=== PATIENT | female | born 1990 | race Caucasian/White ===

== ENCOUNTER 2020-11-08 11:26 | Inpatient (IN) | payer OTHER ==
[~2020-11-08] VITALS: Ht 154.9 cm; Wt 81.2 kg
--- NOTE | ~2020-11-08 | PROC ---
[address] [address] PROCEDURE REPORT Name: PASQUALE PEÑA Room: [address] IN .R.#: [id number] Admission: 11/08/20 Attend Phys: Carmela Alexander Discharge: 11/18/20 Date of : [birth year] Report #: [id number] THIS REPORT FOR: cc: FAM - No family physician/PCP FAM - No family physician/PCP [facility],Medical Records Staff ~ For GI report, please see the Provation report in Perceptive 7 content. By: [id number] Records Staff [facility] /ED
--- NOTE | ~2020-11-08 | PROC ---
[facility] [address] [place] [address] PROCEDURE REPORT Name: PASQUALE PEÑA Room: [address] IN ..#: [id number] Admission: 11/08/20 Attend Phys: Carmela Alexander Discharge: Date of : [birth year] Report #: [id number] THIS REPORT FOR: cc: FAM - No family physician/PCP FAM - No family physician/PCP [facility],Medical Records Staff ~ For GI report, please see the Provation report in Perceptive 7 content. By: [id number] Records Staff [facility] /ED
[2020-11-08 11:29] VITALS: BP 123/52
[2020-11-08 12:37] LABS: BE -25.9 mmol/L (-2 to +3); PCO2 VENOUS 19.4 mmHg (41.0-51.0); PO2 VENOUS 77.9 mmHg (35.0-45.0)
[2020-11-08 12:42] LABS: HEMATOCRIT 25.9 % (37.0-47.0); MCH 28.2 pg (26.0-34.0); MCHC 26.5 g/dL (28.0-37.0); MCV 106.6 fL (80.0-100.0); MPV 9.5 fl. (7.2-11.1); NUCLEATED RBCS 0 /100WBC; PLATELET COUNT* 234 thou/uL (150-400); RBC 2.43 mil/uL (4.20-5.00); WBC 25.6 thou/uL (4.0-11.0)
[2020-11-08 12:43] LABS: URINE BILIRUBIN NEGATIVE (Negative); URINE BLOOD 2+ (Negative); URINE CLARITY CLEAR; URINE COLOR YELLOW; URINE GLUCOSE-RANDOM 3+ (Negative); URINE KETONES 2+ (Negative); URINE LEUKOCYTES-REFLEX NEGATIVE (Negative); URINE NITRITE-REFLEX NEGATIVE (Negative); URINE PROTEIN 3+ (Negative); URINE UROBILINOGEN 0.2 E.U./dl (0.2-1.0)
[2020-11-08 12:48] LABS: HEMOGLOBIN 6.9 gm/dL (12.0-15.0)
[2020-11-08 12:58] LABS: ALBUMIN 1.2 g/dL (3.4-5.0); ALKALINE PHOSPHATASE 93 U/L (46-116); BUN 104 mg/dL (7-18); CALCIUM 7.3 mg/dL (8.5-10.1); CHLORIDE 100 mmol/L (98-107); CREATININE 5.9 mg/dL (0.6-1.3); SGOT 13 U/L (15-37); SGPT 19 U/L (30-65); SODIUM 134 mmol/L (136-145); TOTAL BILIRUBIN 0.4 mg/dL (<0.1-1.0); TOTAL PROTEIN 4.2 g/dL (6.4-8.2)
[2020-11-08 12:58] LABS: BACTERIA-REFLEX None Seen /HPF (None Seen); CASTS None Seen /LPF (None Seen); CRYSTALS None Seen /LPF (None Seen); MUCUS None Seen strn/LPF (None Seen); SQUAMOUS 4-10 Moderate /LPF (0-3); URINE RBC 3-10 Few /HPF (0-2); URINE WBC-REFLEX 0-5 Rare /HPF (0-5)
[2020-11-08 13:02] LABS: ANION GAP 29 mmol/L (7-16)
[2020-11-08 13:04] LABS: CO2 < 5 mmol/L (21-32); POTASSIUM 6.4 mmol/L (3.5-5.1)
[2020-11-08 13:08] LABS: ABSOLUTE LYMPHOCYTES 1.8 thou/uL (0.8-5.3); ABSOLUTE NEUTROPHILS 23.8 thou/uL (1.6-8.1); GLUCOSE 988 mg/dL (70-99); PLATELET ESTIMATE ADEQUATE; PROMYELOCYTES 2 %
[2020-11-08] MEDS ORDERED: HYDROCHLOROTHIA25 M1 PO (13:53)
[2020-11-08] MEDS ORDERED: NEURONTIN100 MG PO (13:53)
[2020-11-08] MEDS ORDERED: TORSEMIDE20 MG PO (13:53)
[2020-11-08] MEDS ORDERED: LANTUS100 UNIT/M SUBQ (13:54)
[2020-11-08] MEDS ORDERED: LABETALOL HCL300 MG PO (13:54)
[2020-11-08 17:00] VITALS: BP 134/54
[2020-11-08 17:35] LABS: URINE BILIRUBIN NEGATIVE (Negative); URINE BLOOD 3+ (Negative); URINE COLOR YELLOW; URINE GLUCOSE-RANDOM 3+ (Negative); URINE KETONES 1+ (Negative); URINE LEUKOCYTES-REFLEX NEGATIVE (Negative); URINE NITRITE-REFLEX NEGATIVE (Negative); URINE PROTEIN 2+ (Negative); URINE SPECIFIC GRAVITY 1.025 (1.005-1.030); URINE UROBILINOGEN 0.2 E.U./dl (0.2-1.0)
[2020-11-08 17:36] LABS: URINE CLARITY CLOUDY
[2020-11-08 17:44] LABS: SQUAMOUS 4-10 Moderate /LPF (0-3)
[2020-11-08 17:46] LABS: AMORPHOUS URATES Few /LPF (None Seen); BACTERIA-REFLEX None Seen /HPF (None Seen); CASTS None Seen /LPF (None Seen); URINE RBC 3-10 Few /HPF (0-2); URINE WBC-REFLEX 0-5 Rare /HPF (0-5)
[2020-11-08 17:47] LABS: CALCIUM 6.8 mg/dL (8.5-10.1); CREATININE 5.7 mg/dL (0.6-1.3)
[2020-11-08 17:48] LABS: POTASSIUM 4.9 mmol/L (3.5-5.1)
[2020-11-08 20:37] LABS: HEMATOCRIT 21.4 % (37.0-47.0)
[2020-11-08 20:39] LABS: HEMOGLOBIN 6.8 gm/dL (12.0-15.0)
[2020-11-08 20:55] LABS: CALCIUM 6.7 mg/dL (8.5-10.1); CREATININE 5.6 mg/dL (0.6-1.3); POTASSIUM 4.4 mmol/L (3.5-5.1)
[2020-11-08 21:35] LABS: ABSOLUTE BASOPHILS 0.2 thou/uL (0.0-0.2); ABSOLUTE LYMPHOCYTES 1.6 thou/uL (0.8-5.3); ABSOLUTE MONOCYTES 1.1 thou/uL (0.0-1.2); ABSOLUTE NEUTROPHILS 19.5 thou/uL (1.6-8.1); BASOPHILS 0.8 %; LYMPHOCYTES 7.2 %; MCH 28.2 pg (26.0-34.0); MCHC 31.1 g/dL (28.0-37.0); MPV 9.1 fl. (7.2-11.1); NUCLEATED RBCS 0 /100WBC; PLATELET COUNT* 212 thou/uL (150-400); RBC 2.32 mil/uL (4.20-5.00); RDW-CV 15.7 % (10.5-14.5); WBC 22.5 thou/uL (4.0-11.0)
[2020-11-08 21:45] VITALS: BP 151/85
[2020-11-08 21:49] LABS: MCV 90.5 fL (80.0-100.0)
[2020-11-08 21:50] LABS: HEMOGLOBIN 6.5 gm/dL (12.0-15.0)
[2020-11-08 22:09] LABS: URINE BILIRUBIN NEGATIVE (Negative); URINE BLOOD 3+ (Negative); URINE CLARITY CLEAR; URINE COLOR STRAW; URINE GLUCOSE-RANDOM 3+ (Negative); URINE KETONES 1+ (Negative); URINE LEUKOCYTES-REFLEX NEGATIVE (Negative); URINE NITRITE-REFLEX NEGATIVE (Negative); URINE PROTEIN 3+ (Negative); URINE UROBILINOGEN 0.2 E.U./dl (0.2-1.0)
[2020-11-08 22:35] LABS: FINE GRANULAR CASTS 0-3 Few /LPF (None Seen); SQUAMOUS 0-3 Few /LPF (0-3)
[2020-11-08 22:36] LABS: BACTERIA-REFLEX 1-9 Few /HPF (None Seen); CRYSTALS None Seen /LPF (None Seen)
[2020-11-09 01:30] LABS: URINE BLOOD 3+ (Negative); URINE CLARITY CLEAR; URINE COLOR YELLOW; URINE GLUCOSE-RANDOM 1+ (Negative); URINE KETONES NEGATIVE (Negative); URINE LEUKOCYTES-REFLEX NEGATIVE (Negative); URINE NITRITE-REFLEX NEGATIVE (Negative); URINE PROTEIN 3+ (Negative); URINE SPECIFIC GRAVITY 1.015 (1.005-1.030); URINE UROBILINOGEN 0.2 E.U./dl (0.2-1.0)
[2020-11-09 01:33] LABS: URINE BILIRUBIN 1+ (Negative)
[2020-11-09 01:36] LABS: ICTOTEST (BILI CONFIRMATORY) Negative (Negative)
[2020-11-09 01:38] LABS: COARSE GRANULAR CASTS 0-3 Few /LPF (None Seen); SQUAMOUS 0-3 Few /LPF (0-3)
[2020-11-09 01:39] LABS: WBC CASTS 0-3 /LPF
[2020-11-09 01:40] LABS: URINE RBC 3-10 Few /HPF (0-2)
[2020-11-09 01:41] LABS: BACTERIA-REFLEX 1-9 Few /HPF (None Seen); CRYSTALS None Seen /LPF (None Seen); URINE WBC-REFLEX 0-5 Rare /HPF (0-5)
[2020-11-09 01:44] LABS: CALCIUM 6.9 mg/dL (8.5-10.1); CREATININE 5.4 mg/dL (0.6-1.3); POTASSIUM 3.9 mmol/L (3.5-5.1)
[2020-11-09 02:00] VITALS: BP 166/88
[2020-11-09 05:18] LABS: CREATININE 5.2 mg/dL (0.6-1.3); POTASSIUM 3.6 mmol/L (3.5-5.1)
[2020-11-09 05:53] LABS: URINE BILIRUBIN NEGATIVE (Negative); URINE BLOOD 3+ (Negative); URINE CLARITY CLEAR; URINE COLOR YELLOW; URINE GLUCOSE-RANDOM 1+ (Negative); URINE KETONES NEGATIVE (Negative); URINE LEUKOCYTES-REFLEX NEGATIVE (Negative); URINE NITRITE-REFLEX NEGATIVE (Negative); URINE PROTEIN 3+ (Negative); URINE UROBILINOGEN 0.2 E.U./dl (0.2-1.0)
[2020-11-09 06:00] VITALS: BP 170/80
[2020-11-09 06:02] LABS: SQUAMOUS 0-3 Few /LPF (0-3); URINE WBC-REFLEX 6-15 Few /HPF (0-5)
[2020-11-09 06:03] LABS: CASTS None Seen /LPF (None Seen); CRYSTALS None Seen /LPF (None Seen); MUCUS 0-3 Light strn/LPF (None Seen)
[2020-11-09 08:49] LABS: HEMATOCRIT 26.7 % (37.0-47.0); MCH 28.6 pg (26.0-34.0); MCHC 32.9 g/dL (28.0-37.0); MPV 8.6 fl. (7.2-11.1); RBC 3.07 mil/uL (4.20-5.00); RDW-CV 16.8 % (10.5-14.5); WBC 22.8 thou/uL (4.0-11.0)
[2020-11-09 08:51] LABS: HEMOGLOBIN 8.8 gm/dL (12.0-15.0)
[2020-11-09 09:00] LABS: ALBUMIN 1.2 g/dL (3.4-5.0); CALCIUM 6.9 mg/dL (8.5-10.1); CREATININE 5.1 mg/dL (0.6-1.3); PHOSPHORUS* 8.3 mg/dL (2.5-4.9); POTASSIUM 4.9 mmol/L (3.5-5.1)
[2020-11-09 09:04] LABS: ABSOLUTE BASOPHILS 0.1 thou/uL (0.0-0.2); ABSOLUTE LYMPHOCYTES 1.3 thou/uL (0.8-5.3); ABSOLUTE MONOCYTES 1.5 thou/uL (0.0-1.2); ABSOLUTE NEUTROPHILS 20.6 thou/uL (1.6-8.1); BASOPHILS 0.6 %; EOSINOPHILS 0.1 %; HEMATOCRIT 26.1 % (37.0-47.0); HEMOGLOBIN 8.5 gm/dL (12.0-15.0); LYMPHOCYTES 5.5 %; MCH 28.2 pg (26.0-34.0); MCHC 32.4 g/dL (28.0-37.0); MCV 87.2 fL (80.0-100.0); MONOCYTES 6.4 %; MPV 8.9 fl. (7.2-11.1); NUCLEATED RBCS 0 /100WBC; PLATELET COUNT* 242 thou/uL (150-400); POLYS 87.4 %; RDW-CV 16.4 % (10.5-14.5); WBC 23.6 thou/uL (4.0-11.0)
[2020-11-09 09:10] LABS: ALBUMIN 1.2 g/dL (3.4-5.0); CALCIUM 6.9 mg/dL (8.5-10.1); CREATININE 5.2 mg/dL (0.6-1.3); POTASSIUM 4.9 mmol/L (3.5-5.1); TOTAL BILIRUBIN 0.2 mg/dL (<0.1-1.0); TOTAL PROTEIN 4.6 g/dL (6.4-8.2)
[2020-11-09 10:00] VITALS: BP 160/86
--- NOTE | 2020-11-09 10:45 | EKG ---
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: LALITA : 1990 Requested By: Michael Prakash Order Number: [id number] MD: Ruben Gudino Measurements Intervals Tiff Rate: 82 P: 67 SC: 139 QRS: 36 QRSD: 122 T: QT: 424 QTc: 496 Interpretive Statements Sinus rhythm Probable left atrial enlargement Nonspecific intraventricular conduction delay Borderline repolarization abnormality Baseline wander in lead(s) V5 No previous ECG available for comparison Electronically Signed On 11-09-2020 10:45:08 CDT by Ruben Gudino [email or web address] <ELECTRONICALLY SIGNED> By: Ruben Gudino MD, [facility] 11/09/20 1045 1228 1228 Ruben Gudino MD, [facility] /EPI
[2020-11-09 14:20] VITALS: BP 154/88
[2020-11-09 14:57] LABS: ALBUMIN 1.2 g/dL (3.4-5.0); CREATININE 5.2 mg/dL (0.6-1.3); PHOSPHORUS* 8.1 mg/dL (2.5-4.9); POTASSIUM 4.3 mmol/L (3.5-5.1)
[2020-11-09 18:05] VITALS: BP 195/94
[2020-11-09 20:14] LABS: URINE BILIRUBIN NEGATIVE (Negative); URINE BLOOD 2+ (Negative); URINE COLOR YELLOW; URINE GLUCOSE-RANDOM 1+ (Negative); URINE KETONES NEGATIVE (Negative); URINE LEUKOCYTES-REFLEX NEGATIVE (Negative); URINE NITRITE-REFLEX NEGATIVE (Negative); URINE PROTEIN 3+ (Negative); URINE SPECIFIC GRAVITY 1.015 (1.005-1.030); URINE UROBILINOGEN 0.2 E.U./dl (0.2-1.0)
[2020-11-09 20:18] LABS: URINE CLARITY HAZY
[2020-11-09 20:19] LABS: CALCIUM 6.9 mg/dL (8.5-10.1); CREATININE 4.8 mg/dL (0.6-1.3); MAGNESIUM 1.8 mg/dL (1.8-2.4); POTASSIUM 3.6 mmol/L (3.5-5.1)
[2020-11-09 20:29] LABS: HYALINE CASTS 0-3 Few /LPF (None Seen); SQUAMOUS 0-3 Few /LPF (0-3)
[2020-11-09 20:30] LABS: URINE RBC 0-2 Rare /HPF (0-2); URINE WBC-REFLEX 0-5 Rare /HPF (0-5)
[2020-11-09 20:31] LABS: BACTERIA-REFLEX 1-9 Few /HPF (None Seen); CRYSTALS None Seen /LPF (None Seen); MUCUS None Seen strn/LPF (None Seen)
[2020-11-09 22:00] VITALS: BP 209/109
[2020-11-09 22:58] LABS: HEMATOCRIT 24.8 % (37.0-47.0); MCH 27.9 pg (26.0-34.0); MCHC 32.1 g/dL (28.0-37.0); MCV 86.8 fL (80.0-100.0); MPV 8.4 fl. (7.2-11.1); RBC 2.86 mil/uL (4.20-5.00); RDW-CV 16.9 % (10.5-14.5); WBC 14.1 thou/uL (4.0-11.0)
[2020-11-10] VITALS (7 sets, daily range): BP systolic 153–212; BP diastolic 74–116
[2020-11-10 00:59] LABS: CALCIUM 6.8 mg/dL (8.5-10.1); CREATININE 4.8 mg/dL (0.6-1.3); MAGNESIUM 1.9 mg/dL (1.8-2.4); POTASSIUM 3.4 mmol/L (3.5-5.1)
[2020-11-10 04:50] LABS: URINE BILIRUBIN NEGATIVE (Negative); URINE BLOOD 2+ (Negative); URINE CLARITY CLEAR; URINE COLOR STRAW; URINE GLUCOSE-RANDOM 2+ (Negative); URINE KETONES NEGATIVE (Negative); URINE LEUKOCYTES NEGATIVE (Negative); URINE NITRITE NEGATIVE (Negative); URINE PROTEIN 3+ (Negative); URINE SPECIFIC GRAVITY 1.015 (1.005-1.030); URINE UROBILINOGEN 0.2 E.U./dl (0.2-1.0)
[2020-11-10 04:57] LABS: SQUAMOUS NONE SEEN /LPF (0-3)
[2020-11-10 04:58] LABS: WBC CASTS 0-3 /LPF
[2020-11-10 04:59] LABS: URINE RBC 3-10 Few /HPF (0-2); URINE WBC 6-15 Few /HPF (0-5)
[2020-11-10 05:00] LABS: CRYSTALS None Seen /LPF (None Seen)
[2020-11-10 05:56] LABS: CALCIUM 6.6 mg/dL (8.5-10.1); CREATININE 4.8 mg/dL (0.6-1.3); POTASSIUM 3.2 mmol/L (3.5-5.1)
[2020-11-10 08:20] LABS: HEMATOCRIT 24.6 % (37.0-47.0); HEMOGLOBIN 8.2 gm/dL (12.0-15.0); MCH 28.3 pg (26.0-34.0); MCHC 33.4 g/dL (28.0-37.0); MCV 84.8 fL (80.0-100.0); MPV 8.2 fl. (7.2-11.1); RBC 2.9 mil/uL (4.20-5.00); RDW-CV 17.1 % (10.5-14.5); WBC 11.7 thou/uL (4.0-11.0)
[2020-11-10 08:28] LABS: URINE BILIRUBIN NEGATIVE (Negative); URINE BLOOD 2+ (Negative); URINE CLARITY CLEAR; URINE COLOR YELLOW; URINE GLUCOSE-RANDOM 1+ (Negative); URINE KETONES NEGATIVE (Negative); URINE LEUKOCYTES NEGATIVE (Negative); URINE NITRITE NEGATIVE (Negative); URINE PROTEIN 3+ (Negative); URINE UROBILINOGEN 0.2 E.U./dl (0.2-1.0)
[2020-11-10 08:34] LABS: CALCIUM 6.6 mg/dL (8.5-10.1); CREATININE 4.8 mg/dL (0.6-1.3); MAGNESIUM 1.7 mg/dL (1.8-2.4)
[2020-11-10 09:06] LABS: SQUAMOUS 4-10 Moderate /LPF (0-3); URINE RBC 3-10 Few /HPF (0-2); URINE WBC 0-5 Rare /HPF (0-5)
[2020-11-10 09:07] LABS: BACTERIA None Seen /HPF (None Seen); CASTS None Seen /LPF (None Seen); CRYSTALS None Seen /LPF (None Seen); MUCUS None Seen strn/LPF (None Seen)
[2020-11-10 13:52] LABS: CALCIUM 6.5 mg/dL (8.5-10.1); CREATININE 4.7 mg/dL (0.6-1.3); MAGNESIUM 1.7 mg/dL (1.8-2.4); POTASSIUM 3.3 mmol/L (3.5-5.1)
[2020-11-10] MEDS ORDERED: HYDRALAZINE 2525 MG PO (15:59)
[2020-11-10] MEDS ORDERED: NORVASC10 MG PO (16:12)
[2020-11-10] MEDS ORDERED: WELLBUTRIN SR200 MG PO (16:14)
[2020-11-10] MEDS ORDERED: HUMALOG100 UNIT/1 SUBQ (16:15)
[2020-11-10] MEDS ORDERED: FLEXERIL PO (16:15)
[2020-11-10] MEDS ORDERED: METOCLOPRAM5 MG/5 M2 PO (16:16)
[2020-11-11 00:29] VITALS: BP 146/82
[2020-11-11 04:25] VITALS: BP 181/92
[2020-11-11 09:57] LABS: % SATURATION 57 % (20-39); IRON 63 ug/dL (50-175)
[2020-11-11] MEDS ORDERED: HUMALOG100 UNIT/1 SUBQ (11:23)
[2020-11-11] MEDS ORDERED: LANTUS100 UNIT/M SUBQ (11:23)
[2020-11-11 12:00] VITALS: BP 170/93
[2020-11-11 16:00] VITALS: BP 199/98
[2020-11-11 21:00] VITALS: BP 189/106
[2020-11-12 00:55] VITALS: BP 182/98
[2020-11-12 04:38] VITALS: BP 192/102
[2020-11-12 06:37] LABS: HEMATOCRIT 21.5 % (37.0-47.0); MCH 28.2 pg (26.0-34.0); MCHC 32.2 g/dL (28.0-37.0); MCV 87.5 fL (80.0-100.0); MPV 8.7 fl. (7.2-11.1); RBC 2.46 mil/uL (4.20-5.00); RDW-CV 16.5 % (10.5-14.5); WBC 6.6 thou/uL (4.0-11.0)
[2020-11-12 06:38] LABS: HEMOGLOBIN 6.9 gm/dL (12.0-15.0)
[2020-11-12 06:45] LABS: CALCIUM 6.7 mg/dL (8.5-10.1); CREATININE 4.4 mg/dL (0.6-1.3); POTASSIUM 3.4 mmol/L (3.5-5.1)
[2020-11-12 11:38] VITALS: BP 172/94; BP 188/100; BP 199/109; BP 225/114
[2020-11-12 16:16] VITALS: BP 181/94
[2020-11-12 16:31] LABS: ABSOLUTE BASOPHILS 0.1 thou/uL (0.0-0.2); ABSOLUTE EOSINOPHILS 0.3 thou/uL (0.0-0.7); ABSOLUTE LYMPHOCYTES 1.5 thou/uL (0.8-5.3); ABSOLUTE MONOCYTES 0.6 thou/uL (0.0-1.2); ABSOLUTE NEUTROPHILS 6.2 thou/uL (1.6-8.1); BASOPHILS 1.1 %; EOSINOPHILS 3.4 %; HEMATOCRIT 30.5 % (37.0-47.0); LYMPHOCYTES 17.5 %; MCH 28.2 pg (26.0-34.0); MCHC 33.3 g/dL (28.0-37.0); MCV 84.8 fL (80.0-100.0); MONOCYTES 6.7 %; MPV 8.4 fl. (7.2-11.1); NUCLEATED RBCS 0 /100WBC; PLATELET COUNT* 157 thou/uL (150-400); POLYS 71.3 %; RDW-CV 16.8 % (10.5-14.5); WBC 8.6 thou/uL (4.0-11.0)
--- NOTE | 2020-11-12 16:36 | CON ---
[address] [address] CONSULTATION Name: MARIANAPASQUALE Kc Room: [address] IN ..#: [id number] Admission: 11/08/20 Attend Phys: Carmela Alexander Discharge: Date of : 89 Report #: [id number] THIS REPORT FOR: cc: FAM - No family physician/PCP FAM - No family physician/PCP Zachary Coello MD ~ DATE OF CONSULTATION: 11/11/2020 The patient does not recall who her PCP is. Please note at the time of this dictation, the patient was seen and physically examined by myself. HISTORY OF PRESENT ILLNESS: This is a 30-year-old female who initially presented to the ED via EMS with altered mental status. The patient is diabetic type 1 and does not control her blood sugars very well and she was supposed to be taking insulin 3 times a day, but she denies having an insulin pump. Apparently, the patient collapsed and fell 45 minutes prior to their arrival. Typically, she is seen at [place] or [place] by what has been told in the records. The patient is a very poor historian and not willing to answer questions regarding her health. Apparently, the patient was in [place] on 10/10 for some facial swelling. It was noted at that time her hemoglobin was 9.2. She denies any NSAID use. She states prior to her admission at this time she was noticing some black tarry stools. Apparently, she had a BM last night, but no mention was made that it was black in nature and the patient cannot tell me whether or not it was black in nature or not. She does admit that she had an EGD done in [place] years ago. She does not recall what it showed. She denies any significant vomiting, some ongoing nausea and generalized abdominal discomfort. ALLERGIES: MORPHINE. MEDICATIONS FROM HOME: Include labetalol, glargine, lispro, furosemide, torsemide, metoclopramide, hydralazine, gabapentin, Flexeril, bupropion, amlodipine. PAST MEDICAL HISTORY: Significant for type 1 diabetes, hypertension, chronic kidney disease and DKA. PAST SURGICAL HISTORY: Unknown. FAMILY HISTORY: Denies family history of any GI or female cancers that she is aware of. SOCIAL HISTORY: She does use tobacco and smokes marijuana 3-5 [place] [address] CONSULTATION Name: MARIANAPASQUALE M Room: [address] IN [facility]#: [id number] Admission: 11/08/20 Attend Phys: Carmela Alexander Discharge: Date of : [birth year] Report #: [id number] REVIEW OF SYSTEMS: Twelve-point review of systems is essentially negative except what is mentioned in the HPI. PHYSICAL EXAMINATION: VITAL SIGNS: 36.2, pulse 93, respirations 18, blood pressure 163/82. HEART: Regular rate and rhythm. LUNGS: Diminished but clear. ABDOMEN: Soft, positive bowel sounds in all 4 quadrants with some generalized tenderness noted to palpation. LABORATORY DATA: WBC is 11.7, hemoglobin yesterday morning was 8.2 on admission, she dropped down from 6.9 to 6.5. She did get 1 unit of blood, platelets are 193. BUN is 80, on admission she was 104. Creatinine is 4.7 with a GFR of 11 on admission, her blood sugar initially was 988 and she is now down to 324 this a.m. IMPRESSION: 1. Melanotic stool. 2. Abdominal pain. 3. Acute on chronic anemia. 4. Diabetic ketoacidosis. 5. Chronic kidney disease. 6. Pneumonia. PLAN: 1. EGD tomorrow with Dr. Coello. 2. Monitor for overt bleeding. 3. Labs, iron studies, ferritin, B12 and a soluble transferrin receptor. 4. Further recommendations to be made after Dr. Coello sees the patient later today. Thank you for allowing us to participate in this patient's care. Please do not hesitate to call with any questions regarding this consult. <ELECTRONICALLY SIGNED> By: Zachary Coello MD 11/12/20 1636 0800 [id number] Coello MD /nt
[2020-11-12 16:38] LABS: HEMOGLOBIN 10.1 gm/dL (12.0-15.0)
[2020-11-12 16:46] LABS: ALBUMIN 0.9 g/dL (3.4-5.0); CALCIUM 7.1 mg/dL (8.5-10.1); CREATININE 4.2 mg/dL (0.6-1.3); POTASSIUM 3.4 mmol/L (3.5-5.1); TOTAL BILIRUBIN 0.3 mg/dL (<0.1-1.0); TOTAL PROTEIN 4.5 g/dL (6.4-8.2)
[2020-11-12] MEDS ORDERED: REGLAN 10 MG TA10 MG PO (20:40)
[2020-11-12] MEDS ORDERED: CARAFATE 11 GM/10 M1 PO (20:40)
[2020-11-12] MEDS ORDERED: FLUCONAZOLE 10100 MG PO (20:44)
[2020-11-12 20:46] VITALS: BP 228/111
[2020-11-13] VITALS: BP 167/102
[2020-11-13 02:55] VITALS: BP 191/112
[2020-11-13 05:45] VITALS: BP 166/89
[2020-11-13 08:43] VITALS: BP 188/110
--- NOTE | 2020-11-13 09:25 | EKG ---
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
--- NOTE | 2020-11-13 11:17 | CON ---
[address] [address] CONSULTATION Name: PASQUALE PEÑA Room: [address] IN .R.#: [id number] Admission: 11/08/20 Attend Phys: Carmela Alexander Discharge: Date of : 89 Report #: [id number] THIS REPORT FOR: cc: FAM - No family physician/PCP FAM - No family physician/PCP Slime Ram MD ~ DATE OF CONSULTATION: 11/10/2020 NEPHROLOGY CONSULTATION CONSULTING PHYSICIAN: Nick Aldrich DO REASON FOR NEPHROLOGY CONSULTATION: Acute kidney injury on chronic kidney disease stage 4. REASON FOR ADMISSION: Diabetic ketoacidosis. HISTORY OF PRESENT ILLNESS: This is a 30-year-old female who has a history of chronic kidney disease stage 4. Her baseline creatinine is 2.9-3 most recently in October. She normally follows with [facility]. She has diabetic nephropathy. In all likelihood, diabetes type 1, not very compliant with her insulin; hypertension, which is also uncontrolled. She has diabetic retinopathy as per the patient as well, came in with DKA. Her creatinine was 5.9 on admission, has come down to 4.8, but now stable. She has been getting IV fluids. Her blood pressure is also out of control. She does take torsemide and hydrochlorothiazide at home. The patient was recently seen on 10/10 at [place] for facial swelling and DKA. ALLERGIES: SHE HAS ALLERGY TO MORPHINE. REVIEW OF SYSTEMS: As mentioned in history of present illness. She was sleeping when I came in. Otherwise, detailed 10-point review of systems was not possible because she was drowsy. PAST MEDICAL HISTORY: Includes chronic kidney disease stage 4; hypertension, which is uncontrolled; diabetes type 1, which is uncontrolled; DKA. PAST SURGICAL HISTORY: The patient did not report any. HOME MEDICATIONS: Include amlodipine, bupropion, Flexeril, gabapentin, hydralazine 25 mg 3 times a day, metoclopramide 5 mg as needed, torsemide 20 mg a day, furosemide 40 mg a day, glargine insulin, insulin lispro and labetalol. FAMILY HISTORY: The patient was not able to [place] [address] CONSULTATION Name: PASQUALE PEÑA Room: [address] IN [facility]#: [id number] Admission: 11/08/20 Attend Phys: Carmela Alexander Discharge: Date of : 89 Report #: [id number] SOCIAL HISTORY: Uses marijuana 3-5 times a week. Tobacco use, alcohol use is not known. PHYSICAL EXAMINATION: VITAL SIGNS: Blood pressure is 153/74, pulse rate is 92, temperature 36.9, respiratory rate is 18 and pulse ox is 94%. She is not on oxygen. GENERAL: She is to be drowsy, but she is arousable; alert and oriented x 3. HEAD AND EYES: Atraumatic, normocephalic. Significant periorbital edema and facial edema. EARS, NOSE, THROAT: Normal ears and nose. Mucous membranes are moist. NECK: JVD was difficult to assess. CHEST: Bilaterally clear to auscultation. CARDIOVASCULAR SYSTEM: S1, S2 normal. No murmurs. ABDOMEN: Soft, nondistended, nontender. LOWER EXTREMITIES: Currently, there was about 1+ edema. NEUROLOGICAL FUNCTION: Grossly intact. PSYCHIATRIC: Mood and affect-dacosta, seems she was a little depressed. LABORATORY DATA: Sodium was 144, potassium was 3.0, bicarb was 19, BUN was 81, creatinine was 4.8, hemoglobin was 8.2 and other labs were reviewed. IMAGING: Head CT, renal ultrasound and chest x-ray were reviewed. ASSESSMENT: 1. Acute kidney injury on chronic kidney disease stage 4. Baseline creatinine is 2.9-3 as per her labs from October of this year. Creatinine was 5.9 on admission in the setting of diabetic ketoacidosis, volume depletion. She does use diuretics at home. Urinalysis revealed 2+ blood as well as evidence of 3+ protein. She had 14 grams of proteinuria in October when her labs were checked at [place]. At that time, she had serological workup, complement levels, KIERRA, hepatitis B surface antigen, serum free light chain ratio were all normal. Her hemoglobin A1c in October was 13. Renal imaging was done. Left kidney could not be visualized for some reason, but right kidney looked normal. 2. Diabetes type 1, which is uncontrolled. She has diabetic retinopathy as well. Would defer to Internal Medicine for management of her diabetic ketoacidosis. 3. Hypertension is also uncontrolled. 4. Hospital-acquired pneumonia. She is being treated for that as per primary team with antibiotics. She is getting Zosyn. 5. Stool for occult blood positive. We will defer to Internal Medicine for management of that. 6. Hypocalcemia. 7. [place] [address] CONSULTATION Name: PASQUALE PEÑA Room: [address] IN M.R.#: [id number] Admission: 11/08/20 Attend Phys: Carmela Alexander Discharge: Date of : 89 Report #: [id number] 8. Anemia. 9. Hypoalbuminemia. PLAN: 1. Change her IV fluids to D5 half normal saline with 20 of K at 100 mL an hour, replete potassium as needed. Check the potassium again this afternoon. 2. Her urine output is good. 3. Creatinine is improved to 4.8, but now stable. 4. Overall, renal prognosis is not good. 5. Tums added for hypocalcemia. 6. We will hold off on diuretics right now, but may have to start them soon. Thank you for this consultation. We will follow with you. I discussed with the patient and the patient's nurse. <ELECTRONICALLY SIGNED> By: Slime Ram MD 11/13/20 1117 0941 1848Ayanick Ram MD /nt
[2020-11-13 12:03] LABS: ALBUMIN 0.8 g/dL (3.4-5.0); ALKALINE PHOSPHATASE 88 U/L (46-116); ANION GAP 10 mmol/L (7-16); BUN 49 mg/dL (7-18); CALCIUM 7.2 mg/dL (8.5-10.1); CHLORIDE 109 mmol/L (98-107); CO2 18 mmol/L (21-32); CREATININE 4.1 mg/dL (0.6-1.3); GLUCOSE 226 mg/dL (70-99); POTASSIUM 4.1 mmol/L (3.5-5.1); SGOT 12 U/L (15-37); SGPT 16 U/L (30-65); SODIUM 137 mmol/L (136-145); TOTAL BILIRUBIN < 0.1 mg/dL (<0.1-1.0); TOTAL PROTEIN 4.1 g/dL (6.4-8.2)
[2020-11-13 12:11] VITALS: BP 136/79
[2020-11-13 19:57] VITALS: BP 180/97
[2020-11-14] VITALS: BP 128/71
[2020-11-14 03:46] LABS: HEMATOCRIT 27.2 % (37.0-47.0); HEMOGLOBIN 8.9 gm/dL (12.0-15.0); MCH 28.1 pg (26.0-34.0); MCHC 32.7 g/dL (28.0-37.0); MCV 85.9 fL (80.0-100.0); MPV 8.8 fl. (7.2-11.1); RBC 3.16 mil/uL (4.20-5.00); RDW-CV 17.2 % (10.5-14.5); WBC 10.6 thou/uL (4.0-11.0)
[2020-11-14 04:00] VITALS: BP 142/82
[2020-11-14 04:09] LABS: ALBUMIN 0.7 g/dL (3.4-5.0); CALCIUM 7.4 mg/dL (8.5-10.1); CREATININE 4.1 mg/dL (0.6-1.3); MAGNESIUM 1.5 mg/dL (1.8-2.4); POTASSIUM 3.6 mmol/L (3.5-5.1); TOTAL BILIRUBIN 0.1 mg/dL (<0.1-1.0); TOTAL PROTEIN 3.9 g/dL (6.4-8.2)
[2020-11-14 12:00] VITALS: BP 132/79
[2020-11-14 16:00] VITALS: BP 173/80
[2020-11-14 19:54] VITALS: BP 169/92
[2020-11-15] VITALS: BP 143/78
[2020-11-15 02:34] LABS: HEMATOCRIT 25.4 % (37.0-47.0); HEMOGLOBIN 8.3 gm/dL (12.0-15.0); MCHC 32.6 g/dL (28.0-37.0); RBC 2.95 mil/uL (4.20-5.00); RDW-CV 16.5 % (10.5-14.5); WBC 10.3 thou/uL (4.0-11.0)
[2020-11-15 03:03] LABS: CALCIUM 7.4 mg/dL (8.5-10.1); CREATININE 4.1 mg/dL (0.6-1.3)
[2020-11-15 04:00] VITALS: BP 145/83
[2020-11-15 08:35] VITALS: BP 100/58
[2020-11-15 12:00] VITALS: BP 117/73
[2020-11-15 16:00] VITALS: BP 169/90
[2020-11-15 20:01] VITALS: BP 197/100
[2020-11-16] VITALS: BP 144/79
[2020-11-16 04:24] VITALS: BP 134/77
[2020-11-16 04:32] LABS: HEMATOCRIT 23.1 % (37.0-47.0); HEMOGLOBIN 7.6 gm/dL (12.0-15.0); MCH 28.3 pg (26.0-34.0); MCHC 32.8 g/dL (28.0-37.0); MCV 86.1 fL (80.0-100.0); MPV 8.4 fl. (7.2-11.1); RBC 2.69 mil/uL (4.20-5.00); RDW-CV 16.7 % (10.5-14.5); WBC 8.3 thou/uL (4.0-11.0)
[2020-11-16 05:20] LABS: ALBUMIN 0.8 g/dL (3.4-5.0); CALCIUM 7.6 mg/dL (8.5-10.1); CREATININE 4.4 mg/dL (0.6-1.3); POTASSIUM 3.8 mmol/L (3.5-5.1); TOTAL BILIRUBIN 0.1 mg/dL (<0.1-1.0); TOTAL PROTEIN 3.9 g/dL (6.4-8.2)
[2020-11-16 08:00] VITALS: BP 192/101
[2020-11-16 16:00] VITALS: BP 189/107
[2020-11-16 17:54] LABS: HEMATOCRIT 26.9 % (37.0-47.0); HEMOGLOBIN 8.6 gm/dL (12.0-15.0); MCHC 32.2 g/dL (28.0-37.0); MPV 7.9 fl. (7.2-11.1); RBC 3.09 mil/uL (4.20-5.00); RDW-CV 16.7 % (10.5-14.5); WBC 8.6 thou/uL (4.0-11.0)
[2020-11-16 21:34] VITALS: BP 202/109
[2020-11-16 22:45] VITALS: BP 186/98
[2020-11-17] VITALS: BP 128/74
[2020-11-17 04:00] VITALS: BP 138/84
[2020-11-17 05:28] LABS: HEMATOCRIT 23.7 % (37.0-47.0); HEMOGLOBIN 7.6 gm/dL (12.0-15.0); MCHC 32.1 g/dL (28.0-37.0); MCV 87.3 fL (80.0-100.0); MPV 8.2 fl. (7.2-11.1); RBC 2.71 mil/uL (4.20-5.00); RDW-CV 17.1 % (10.5-14.5); WBC 7.2 thou/uL (4.0-11.0)
[2020-11-17 05:34] LABS: CALCIUM 7.5 mg/dL (8.5-10.1); CREATININE 4.5 mg/dL (0.6-1.3); MAGNESIUM 1.8 mg/dL (1.8-2.4); POTASSIUM 4.2 mmol/L (3.5-5.1)
[2020-11-17 08:00] VITALS: BP 175/88
[2020-11-17 11:57] VITALS: BP 158/90
--- NOTE | 2020-11-17 17:06 | PATH ---
[address] [address] PATHOLOGY RPT PROCEDURE Name: IZA BARRETT Room: [address] IN M.R.#: [id number] Admission: 11/08/20 Date of : [birth year] Discharge: Report #: [id number] Path Case #: [id number] [facility] Accession Number: [id number] . 01 Material submitted: . PART A: stomach - STOMACH PART B: esophagus - ESOPHAGUS- SEVERELY FRIABLE MUCOSA- R/O FRANK AND DYSPLASIA . 01 Clinical history: . EGD IN OR DKA, PNEUMONIA . 02 Diagnosis: A. Stomach: - Mild nonspecific chronic gastritis, negative for Helicobacter pylori organisms, granulomas and dysplasia. . B. Esophagus: - Predominantly inflammatory debris in association with abundant fungal elements typical of Frank species and benign and inflamed fibromuscular stroma and scant heavily inflamed squamous epithelium with atypia, nondiagnostic for dysplasia. - Isolated fragment of benign stomach glandular tissue with minimal acute inflammation, negative for goblet cells, granulomas and diagnostic viral inclusions. See comment. . (HELEN:shazia; 11/17/2020) MBR 11/17/2020 1319 Local . 02 Comment: In specimen B, a single very small fragment of atypical squamous epithelium is present in association with abundant inflammation and it is within the spectrum of inflammatory atypia, however, dysplasia also cannot be excluded. (HELEN:shazia; 11/17/2020) . . Special stain on A: H. pylori immuno . 02 Electronically signed: . Keanu Richardson MD, Pathologist NPI- [id number] . 01 Gross description: . A. The specimen is received in formalin, labeled "Iza Barrett, stomach-erosions". It consists of 2 sarmiento irregular soft tissue fragments measuring 0.4 and 0.5 cm. The [place] [address] PATHOLOGY RPT PROCEDURE Name: IZA BARRETT Room: [address] IN [facility]#: [id number] Admission: 11/08/20 Date of : [birth year] Discharge: Report #: [id number] Path Case #: [id number] sponges in A1. . B. The specimen is received in formalin, labeled "Iza Barrett, esophagus R/O frank and dysplasia". It consists of multiple sarmiento-dupont, irregular soft tissue fragments measuring 1.2 x 1.1 x 0.2 cm in aggregate. The specimen is placed in a biopsy bag and entirely submitted in B1 for serial multiple step sections. (MRF; 11/13/2020) MFE/MFE 11/17/2020 1320 Local . 02 Pathologist provided ICD-10: K29.50, B37.81 . 02 CPT . 137480, 546672, Q61540 Specimen Comment: A courtesy copy of this report has been sent to [phone] Specimen Comment: [phone] Specimen Comment: Report sent to / DR SPIVEY Performed at: [address] [facility] [address], [place], [place] [id number] MD Martin Pack MD Phone: [phone] Performed at: 02 [facility] [place] [address] [place] [id number] MD Keanu Richardson MD Phone: [phone]
[2020-11-17 20:52] VITALS: BP 179/93
[2020-11-18] VITALS: BP 154/86
[2020-11-18 04:00] VITALS: BP 183/96
[2020-11-18 05:25] LABS: HEMATOCRIT 22.9 % (37.0-47.0); HEMOGLOBIN 7.6 gm/dL (12.0-15.0); MCH 28.5 pg (26.0-34.0); MCHC 33.2 g/dL (28.0-37.0); MPV 7.4 fl. (7.2-11.1); RBC 2.66 mil/uL (4.20-5.00); RDW-CV 16.4 % (10.5-14.5); WBC 8.6 thou/uL (4.0-11.0)
[2020-11-18 05:37] LABS: ALBUMIN 0.8 g/dL (3.4-5.0); CALCIUM 7.6 mg/dL (8.5-10.1); CREATININE 4.2 mg/dL (0.6-1.3); MAGNESIUM 1.7 mg/dL (1.8-2.4); POTASSIUM 4.3 mmol/L (3.5-5.1)
[2020-11-18 05:59] LABS: TOTAL BILIRUBIN 0.1 mg/dL (<0.1-1.0)
[2020-11-18] MEDS ORDERED: CALCIUM500 M1 PO (10:17)
[2020-11-18] MEDS ORDERED: HYDRALAZINE 2525 MG PO (10:17)
[2020-11-18] MEDS ORDERED: ANTACID650 MG PO (10:17)
[2020-11-18] MEDS ORDERED: PROTONIX40 M2 PO (10:18)
[2020-11-18 12:11] VITALS: BP 161/95
[2020-11-18 15:26] VITALS: BP 161/95
== END 2020-11-18 15:59 | disposition home or self-care (01) | DRG 637 ==
LOC: M.ERS 11:26 → M.TBA-ER 13:04 → M.2W 11-10 13:48
PROVIDERS: Family Medicine; Internal Medicine; Nurse Practitioner Adult Health; ADMIT Internal Medicine; ATTEND Internal Medicine
PROC: 30233N1 Transfusion of Nonautologous Red Blood Cells into Peripheral Vein, Percutaneous Approach (ICD-10-PCS; principal; 2020-11-08)
PROC: 02HV33Z Insertion of Infusion Device into Superior Vena Cava, Percutaneous Approach (ICD-10-PCS; principal; 2020-11-08)
PROC: B548ZZA Ultrasonography of Superior Vena Cava, Guidance (ICD-10-PCS; principal; 2020-11-08)
PROC: 0DBA8ZX Excision of Jejunum, Via Natural or Artificial Opening Endoscopic, Diagnostic (ICD-10-PCS; 2020-11-12)
PROC: 0DB58ZX Excision of Esophagus, Via Natural or Artificial Opening Endoscopic, Diagnostic (ICD-10-PCS; 2020-11-12)
PROC: 0DJ08ZZ Inspection of Upper Intestinal Tract, Via Natural or Artificial Opening Endoscopic (ICD-10-PCS; 2020-11-17)
DX: E10.10 Type 1 diabetes mellitus with ketoacidosis without coma (principal); J18.9 Pneumonia, unspecified organism; G93.41 Metabolic encephalopathy; K22.11 Ulcer of esophagus with bleeding; K21.01 Gastro-esophageal reflux disease with esophagitis, with bleeding; K29.71 Gastritis, unspecified, with bleeding; N17.9 Acute kidney failure, unspecified; N18.4 Chronic kidney disease, stage 4 (severe); N39.0 Urinary tract infection, site not specified; B37.81 Candidal esophagitis; D62 Acute posthemorrhagic anemia; E87.5 Hyperkalemia; E10.22 Type 1 diabetes mellitus with diabetic chronic kidney disease; I12.9 Hypertensive chronic kidney disease with stage 1 through stage 4 chronic kidney disease, or unspecified chronic kidney disease; Y95 Nosocomial condition; E83.51 Hypocalcemia; E10.40 Type 1 diabetes mellitus with diabetic neuropathy, unspecified; Z20.822 Contact with and (suspected) exposure to COVID-19; E10.319 Type 1 diabetes mellitus with unspecified diabetic retinopathy without macular edema; K44.9 Diaphragmatic hernia without obstruction or gangrene; K31.89 Other diseases of stomach and duodenum; Z88.5 Allergy status to narcotic agent; Z79.899 Other long term (current) drug therapy